=== PATIENT | female | born 1970 | race Caucasian/White ===

== ENCOUNTER 2017-01-11 06:41 | Emergency (ER) | payer BC, MEDICAID ==
[2017-01-11 06:50] VITALS: BP 137/115
--- NOTE | 2017-01-11 08:31 | RAD ---
HISTORY: Right shoulder pain COMPARISONS: None VIEWS: 4, Frontal internal rotation, external rotation, and outlet views of the right shoulder FINDINGS: BONE DENSITY: Normal. BONES: There is no displaced fracture. JOINTS: There is mild osteoarthritis of the right AC joint ALIGNMENT: There is no dislocation. SOFT TISSUES: Unremarkable. OTHER FINDINGS: None. IMPRESSION: NO ACUTE OSSEOUS INJURY. IF SYMPTOMS PERSIST, RECOMMEND REPEAT IMAGING.
--- NOTE | 2017-01-11 08:35 | RAD ---
INDICATION: Wrist pain without proceeding injury. COMPARISON: None. TECHNIQUE: AP, lateral, and oblique views RIGHT wrist. REPORT AND IMPRESSION: Minor ulnar plus variance which increases stress on the triangular fibrocartilage. Alignment is otherwise normal. Preserved joint spaces. Healed fracture of the fifth metacarpal noted. No acute fracture or focal osseous lesion. Unremarkable soft tissue contours.
--- NOTE | 2017-01-11 13:59 | ED ---
nini Kaminski Timothy, scribed for Pito Yanez MD on 01/11/17 at 0719 . Upper Extremity Pain - HPI Summary HPI Summary: Prema Zambrano is 46 yo female presenting to [facility] with 6/10 right wrist ache radiating through her arm into her right shoulder since 0000 01/10/17, increasing throughout yesterday. She states the pain is worse at night. Her pain increases with movement of her right hand and arm. She states she was Dx with carpal tunnel a few years ago, but it resolved spontaneously. She states she has been writing and crocheting a lot recently, but denies any trauma. She denies any neck pain, but claims swelling and tenderness throughout her right arm and shoulder. She states she was on prednisone for hives. She self- medicated with tylenol, last at 0520 with 650 mg. Her opiate Hx is with oxycodone (9 year history). Her MHx includes opiate abuse (recovering), rheumatoid arthritis, COPD, asthma, cholecystectomy, sepsis, hysterectomy, former tobacco smoker. - History of Current Complaint Chief Complaint: EDExtremityUpper Stated Complaint: WRIST PAIN Time Seen by Provider: 01/11/17 07:18 Hx Obtained From: Patient Mechanism Of Injury: Unknown Onset/Duration: Started Hours Ago, Still Present Severity Initially: Moderate Severity Currently: Moderate Pain Location: Wrist Character: Aching Aggravating Factor(s): Movement, Lifting, Flexion, Extension - Allergies/Home Medications Allergies/Adverse Reactions: Allergies Allergy/AdvReac Type Severity Reaction Status Date / Time NSAIDs Allergy Swelling Verified 01/11/17 06:45 Of Face,Lips,& Throat Penicillins Allergy Anaphylatic Verified 01/11/17 06:45 Shock Sulfa Antibiotics Allergy Unknown Verified 01/11/17 06:45 Reaction Details Home Medications: Home Medications Buprenorphine HCl-Naloxone HCl [Suboxone] 2 ea SL DAILY 01/11/17 [History Confirmed 01/11/17] Multiple Vitamins W/ Minerals [Multivitamin Adults] 1 tab PO DAILY 01/11/17 [ History Confirmed 01/11/17] traZODone TAB* [Desyrel TAB*] 100 mg PO BEDTIME 01/11/17 [History Confirmed ] PMH/Surg Hx/FS Hx/Imm Hx Respiratory History: Reports: Hx Asthma, Hx Chronic Obstructive Pulmonary Disease (COPD) Musculoskeletal History: Reports: Hx Arthritis Psychiatric History: Reports: Hx Substance Abuse - opiate - Surgical History Surgery Procedure, Year, and Place: cholecystectomy, hysterectomy Infectious Disease History: Yes Infectious Disease History: Denies: Traveled Outside the [place] in Last 30 Days - Family History Known Family History: Positive: Cardiac Disease, Hypertension, Diabetes - Social History 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, 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 Alcohol Use: None Hx Substance Use: Yes Substance Use Type: Reports: Other - opiate Hx Tobacco Use: Yes Smoking Status (MU): Former Smoker Review of Systems Constitutional: Negative Eyes: Negative ENT: Negative Cardiovascular: Negative Respiratory: Negative Gastrointestinal: Negative Genitourinary: Negative Musculoskeletal: Other - right wrist pain radiating to right shoulder Positive: Other - tennderness and edema throughout right arm Skin: Negative Neurological: Negative Psychological: Normal All Other Systems Reviewed And Are Negative: Yes Physical Exam - Summary Physical Exam Summary: The patient is well-nourished in no acute distress and in no acute pain. The skin is warm and dry and skin color reflects adequate perfusion. HEENT: The head is normocephalic and atraumatic. The pupils are equal and reactive. The conjunctivae are clear and without drainage. Nares are patent and without drainage. Mouth reveals moist mucous membranes and the throat is without erythema and exudate. The external ears are intact. The ear canals are patent and without drainage. The tympanic membranes are intact. Neck is supple with full range of motion and non-tender. There are no carotid bruits. There is no neck vein distension. Respiratory: Chest is non-tender. Lungs are clear to auscultation and breath sounds are symmetrical and equal. Cardiovascular: Heart is regular rate and rhythm. There is no murmur or rub auscultated. There is no peripheral edema and pulses are symmetrical and equal. Musculoskeletal: Exam limited to RUE. There is marked tenderness on the proximal aspect of the humerus and rotator cuff. Erythema is noted over the humerus. There are diffuse hives. There is good brachial pulse, good ulnar and radial pulse, as well as capillary refill. There is no swelling of the wrist. The elbow is intact with full ROM. The right wrist has full ROM through flexion and extension. Note some atrophy in the interosseus digits of the right hand. There is decreased motor strength in the right hand compared to the left. Positive tinel's and phalan's sign in the RUE. Decreased sensation over the median nerve of the RUE. Ulnar and radial nerves intact. Neurological: Patient is alert and oriented to person, place and time. The patient has symmetrical motor strength in all four extremities. Cranial nerves are grossly intact. Deep tendon reflexes are symmetrical and equal in all four extremities. Psychiatric: The patient has an appropriate affect and does not exhibit any anxiety or depression. Triage Information Reviewed: Yes Vital Signs On Initial Exam: Initial Vitals Temp Pulse Resp BP Pulse Ox 98.0 F 71 16 137/115 93 01/11/17 06:42 01/11/17 06:42 01/11/17 06:42 01/11/17 06:42 01/11/17 06:42 Vital Signs Reviewed: Yes - [place] Coma Scale Coma Scale Total: 15 Procedures - Splinting Location: right wrist Pre-Made Type: velcro Splint: wrist - cockup Pre-Proc Neuro Vasc Exam: normal Post-Proc Neuro Vasc Exam: normal, unchanged from pre-exam Diagnostics - Vital Signs Vital Signs Temp Pulse Resp BP Pulse Ox 01/11/17 06:42 98.0 F 71 16 137/115 93 - Laboratory Lab Statement: Any lab studies that have been ordered have been reviewed, and results considered in the medical decision making process. - Radiology R wrist XR Xray Interpretation: No Acute Changes - REPORT AND IMPRESSION: Minor ulnar plus variance which increases stress on the triangular fibrocartilage. Alignment is otherwise normal. Preserved joint spaces. Healed fracture of the fifth metacarpal noted. No acute fracture or focal osseous lesion. Unremarkable soft tissue contours. Radiology Interpretation Completed By: Radiologist R shoulder XR Xray Interpretation: No Acute Changes - IMPRESSION: NO ACUTE OSSEOUS INJURY. IF SYMPTOMS PERSIST, RECOMMEND REPEAT IMAGING. Radiology Interpretation Completed By: Radiologist Re-Evaluation - Re-Evaluation First Eval Re-Evaluation Time: 08:48 Change: Unchanged Comment: Informed Pt of negative results of imaging study. Pt feels better with application of her splint, and does not want pain medication. Course/Dx - Course Assessment/Plan: Prema Zambrano is a 46 yo female with RA and carpal tunnel presenting to [facility] with right upper extremity pain. Pt does not request pain medication. After clinical examination and negative XR's of her right shoulder and wrist, she will be discharged home with right carpal tunnel syndrome, and right medial nerve entrapment. - Diagnoses Differential Diagnosis/HQI/PQRI: Positive: Other - RA, median nerve entrapment, carpal tunnel RUE, right rotator cuff injury Provider Diagnoses: Median nerve entrapment, Right carpal tunnel syndrome, Injury of right rotator cuff Discharge - Discharge Plan Condition: Stable Disposition: HOME Patient Education Materials: Rotator Cuff Injury (ED), Carpal Tunnel Syndrome ( ED), Carpal Tunnel Syndrome Exercises (GEN) Referrals: Frederic Benavides MD [Medical Doctor] - 2 Days Additional Instructions: Please follow up with orthopedics of your choice regarding your visit to the emergency department today. Return to the emergency department with any new or recurring symptoms. The documentation as recorded by the nini dooley Timothy accurately reflects the service I personally performed and the decisions made by , Pito Yanez MD.
== END 2017-01-11 09:03 | disposition home or self-care (01) ==
LOC: ED 06:41
DX: G56.01 Carpal tunnel syndrome, right upper limb (principal); S46.001A Unspecified injury of muscle(s) and tendon(s) of the rotator cuff of right shoulder, initial encounter; X58.XXXA Exposure to other specified factors, initial encounter; Y93.9 Activity, unspecified; Y92.9 Unspecified place or not applicable; Z87.09 Personal history of other diseases of the respiratory system
CPT/HCPCS: 99282

== ENCOUNTER 2017-01-23 15:57 | Emergency (ER) | payer BC ==
[2017-01-23 16:15] VITALS: BP 109/52
[2017-01-23] MEDS ORDERED: NS 0.9% 1000 ML* 1,000 ML IV ONE (16:22)
[2017-01-23 16:50] LABS: Hematocrit 38 % (35-47); Hemoglobin 13.1 g/dl (12.0-16.0); Mean Corpuscular HGB Conc 34 g/dl (31-36); Mean Corpuscular Hemoglobin 32 pg (27-31); Mean Corpuscular Volume 93 fL (80-97); Mean Platelet Volume 9 um3 (7.4-10.4); Red Blood Count 4.12 10^6/ul (4.0-5.4); Red Cell Distribution Width 13 % (10.5-15)
--- NOTE | 2017-01-23 16:54 | RAD ---
INDICATION: Left-sided chest pain. COMPARISON: There are no prior studies available for comparison. TECHNIQUE: Dual-energy PA and lateral views of the chest were obtained. FINDINGS: The heart is within normal limits in size. Mediastinal and hilar contours appear within normal limits. The lungs are underinflated with more focal elevation of the right hemidiaphragm. There is a small right basilar infiltrate suggestive of atelectasis. No pleural effusion is seen. There is flattening of the diaphragms suggestive of chronic obstructive pulmonary disease. IMPRESSION: FINDINGS SUGGESTIVE OF COPD, NO EVIDENCE FOR ACUTE FINDING.
[2017-01-23 17:06] LABS: Albumin 3.9 g/dL (3.2-5.2); BUN/Creatinine Ratio 20.3 (8-20); Calcium 9.4 mg/dL (8.6-10.3); EGFR African American 100.8 (>60); EGFR Non-African American 78.3 (>60); Globulin 2.7 g/dL (2-4); Potassium 3.9 mmol/L (3.5-5.0); Total Bilirubin 0.3 mg/dL (0.2-1.0); Total Protein 6.6 g/dL (6.4-8.9)
[2017-01-23] MEDS ORDERED: Iohexol 350* (CONTRAST) 500 ML MDV IV ONE (17:22)
--- NOTE | 2017-01-23 17:49 | RAD ---
INDICATION: Chest patient with radiation to the back and shortness of breath. COMPARISON: Comparison is made with a prior chest x-ray study obtained earlier today. TECHNIQUE: A CT angiogram of the chest was performed with intravenous following intravenous injection of 77 ml of Omnipaque 350 nonionic contrast. Contiguous axial sections were obtained from the lung apices through the lung bases. Images were reconstructed in the coronal and sagittal planes. FINDINGS: The opacification of the pulmonary arteries is just below the optimal level limiting the study slightly. No intraluminal filling defect or pulmonary embolism is seen. The heart is within normal limits in size. No pericardial effusion is present. The thoracic aorta is normal in caliber and demonstrates homogeneous contrast opacification. There are slightly prominent lymph nodes in the pretracheal and aorticopulmonary window regions of the mediastinum measuring up to 0.9 cm in transverse dimension. No enlarged hilar lymph nodes are seen. There is mild centrilobular emphysematous change. There is a small infiltrate in the right middle lobe suggestive of atelectasis. The lungs are otherwise clear. No pleural effusion is seen. Images of the upper abdomen demonstrate postcholecystectomy changes. No significant focal osseous abnormality is seen. IMPRESSION: 1. SLIGHTLY LIMITED EXAM, NO EVIDENCE FOR PULMONARY EMBOLISM. 2. SMALL RIGHT MIDDLE LOBE INFILTRATE SUGGESTIVE OF ATELECTASIS. 3. MILDLY PROMINENT MEDIASTINAL LYMPH NODES.
--- NOTE | 2017-01-23 18:56 | ED ---
Nayan Kaminski Rebecca, scribed for Pito Yanez MD on 01/23/17 at 1640 . HPI Chest Pain - HPI Summary HPI Summary: Pt is a 46 y/o F who presents to ED c/o CP. Pain began suddenly yesterday at 1400. It was intermittent and has been constant since this morning. Sx aggravated and alleviated by nothing, unchanged by sitting up. Pain is in the L anterior region with radiation to the back and shoulder blade. Characterized as squeezing and currently moderate, ranked 5/10. Additionally c/o bilateral edema , dizziness, N/V (1x yesterday), abd pain and mild SOB. Denies cough. FHx DM, HLD, CAD. Has never had a stress test. Is not on a blood thinner, has been off them for a few years. PSHx cholecystectomy. PMHx PE. Current pain is not similar to presentation with PEs. Pt is a resident at [facility] for opiod abuse. Common bile duct is blocked. Has had CTs with contrast in the past. Can take ASA and Ibuprofen. Confirms she can take NSAIDs as long as they don't mix with codeine. - History of Current Complaint Chief Complaint: EDChestPainROMI Time Seen by Provider: 01/23/17 16:38 Hx Obtained From: Patient Onset/Duration: Started Days Ago - 1 day ago, Still Present Time of Onset: 14:00 Timing: Constant Initial Severity: Moderate Current Severity: Moderate Pain Intensity: 5 Pain Scale Used: 0-10 Numeric Chest Pain Location: Left Anterior Chest Pain Radiates: Yes Chest Pain Radiates To:: Back, Shoulder - L shoulder blade Character: Pressure/Squeezing Aggravating Factor(s): Nothing Alleviating Factor(s): Nothing Associated Signs and Symptoms: Positive: Chest Pain, Shortness of Breath - mild , Nausea, Abdominal Pain, Calf Pain/Swelling - bilateral swelling, Vomiting - 1x yesterday, Other: - Dizziness. Negative: Cough - Allergy/Home Medications Allergies/Adverse Reactions: Allergies Allergy/AdvReac Type Severity Reaction Status Date / Time NSAIDs Allergy Swelling Verified 01/11/17 06:45 Of Face,Lips,& Throat Penicillins Allergy Anaphylatic Verified 01/11/17 06:45 Shock Sulfa Antibiotics Allergy Unknown Verified 01/11/17 06:45 Reaction Details PMH/Surg Hx/FS Hx/Imm Hx Respiratory History: Reports: Hx Asthma, Hx Chronic Obstructive Pulmonary Disease (COPD) Musculoskeletal History: Reports: Hx Arthritis Psychiatric History: Reports: Hx Substance Abuse - opiate - Surgical History Surgery Procedure, Year, and Place: cholecystectomy, hysterectomy Infectious Disease History: Yes Infectious Disease History: Denies: Traveled Outside the [place] in Last 30 Days - Family History Known Family History: Positive: Cardiac Disease, Hypertension, Diabetes - Social History Alcohol Use: None Hx Substance Use: Yes Substance Use Type: Reports: Other Substance Use Comment - Amount & Last Used: suboxone Hx Tobacco Use: Yes Smoking Status (MU): Former Smoker Review of Systems Positive: Chest Pain - L anterior Positive: Shortness Of Breath - mild. Negative: Cough Positive: Abdominal Pain, Vomiting - 1x yesterday, Nausea Positive: Edema - bilateral Neurological: Other - Dizziness All Other Systems Reviewed And Are Negative: Yes Physical Exam - Summary Physical Exam Summary: The patient is well-nourished in no acute distress and in no acute pain. The skin is warm and dry and skin color reflects adequate perfusion. Good skin turgor. HEENT: The head is normocephalic and atraumatic. The pupils are equal and reactive. The conjunctivae are clear and without drainage. Nares are patent and without drainage. Mouth reveals moist mucous membranes and the throat is without erythema and exudate. The external ears are intact. The ear canals are patent and without drainage. The tympanic membranes are intact. Neck is supple with full range of motion and non-tender. There are no carotid bruits. There is no neck vein distension. Respiratory: Chest is non-tender. Lungs are clear to auscultation and breath sounds are symmetrical and equal. Cardiovascular: Hear is regular rate and rhythm. There is no murmur, rales, ronchi, crackles or rub auscultated. There is no peripheral edema and pulses are symmetrical and equal. Reproducible left anterior chest wall pain. Abdomen: The abdomen is obese, soft and non-tender. There are normal bowel sounds heard in all four quadrants and there is no organomegaly palpated. No CVA tenderness. Musculoskeletal: There is no back pain noted. Extremities are non-tender with full range of motion. There is good capillary refill. There is no peripheral edema or calf tenderness elicited. Neurological: Patient is alert and oriented to person, place and time. The patient has symmetrical motor strength in all four extremities. Cranial nerves are grossly intact. Deep tendon reflexes are symmetrical and equal in all four extremities. Psychiatric: The patient has an appropriate affect and does not exhibit any anxiety or depression. Triage Information Reviewed: Yes Vital Signs On Initial Exam: Initial Vitals Temp Pulse Resp BP Pulse Ox 97.7 F 73 18 109/52 93 01/23/17 16:06 01/23/17 16:06 01/23/17 16:06 01/23/17 16:06 01/23/17 16:06 Vital Signs Reviewed: Yes - Jakub Coma Scale Coma Scale Total: 15 Diagnostics - Vital Signs Vital Signs Temp Pulse Resp BP Pulse Ox 01/23/17 16:06 97.7 F 73 18 109/52 93 - Laboratory Lab Results: Lab Results 01/23/17 01/23/17 01/23/17 Range/Units 16:35 16:35 16:35 WBC 7.0 (3.5-10.8) 10^3/ul RBC 4.12 (4.0-5.4) 10^6/ul Hgb 13.1 (12.0-16.0) g/dl Hct 38 (35-47) % MCV 93 (80-97) fL MCH 32 H (27-31) pg MCHC 34 (31-36) g/dl RDW 13 (10.5-15) % Plt Count 183 (150-450) 10^3/ul MPV 9 (7.4-10.4) um3 Neut % (Auto) 48.8 (38-83) % Lymph % (Auto) 36.4 (25-47) % [place] % (Auto) 11.2 H (1-9) % Eos % (Auto) 3.2 (0-6) % Baso % (Auto) 0.4 (0-2) % Absolute Neuts (auto) 3.4 (1.5-7.7) 10^3/ul Absolute Lymphs (auto) 2.5 (1.0-4.8) 10^3/ul Absolute Monos (auto) 0.8 (0-0.8) 10^3/ul Absolute Eos (auto) 0.2 (0-0.6) 10^3/ul Absolute Basos (auto) 0 (0-0.2) 10^3/ul Absolute Nucleated RBC 0.01 10^3/ul Nucleated RBC % 0.1 D-Dimer, Quantitative (Less Than 230) ng/mL Sodium 140 (133-145) mmol/L Potassium 3.9 (3.5-5.0) mmol/L Chloride 104 (101-111) mmol/L Carbon Dioxide 30 (22-32) mmol/L Anion Gap 6 (2-11) mmol/L BUN 16 (6-24) mg/dL Creatinine 0.79 (0.51-0.95) mg/dL Est GFR ( Amer) 100.8 (>60) Est GFR (Non-Af Amer) 78.3 (>60) BUN/Creatinine Ratio 20.3 H (8-20) Glucose 108 H (70-100) mg/dL Lactic Acid 0.9 (0.5-2.0) mmol/L Calcium 9.4 (8.6-10.3) mg/dL Total Bilirubin 0.30 (0.2-1.0) mg/dL AST 22 (13-39) U/L ALT 16 (7-52) U/L Alkaline Phosphatase 87 (34-104) U/L Troponin I 0.00 (<0.04) ng/mL B-Natriuretic Peptide ( - 100) pg/mL Total Protein 6.6 (6.4-8.9) g/dL Albumin 3.9 (3.2-5.2) g/dL Globulin 2.7 (2-4) g/dL Albumin/Globulin Ratio 1.4 (1-3) 01/23/17 01/23/17 Range/Units 16:35 17:37 WBC (3.5-10.8) 10^3/ul RBC (4.0-5.4) 10^6/ul Hgb (12.0-16.0) g/dl Hct (35-47) % MCV (80-97) fL MCH (27-31) pg MCHC (31-36) g/dl RDW (10.5-15) % Plt Count (150-450) 10^3/ul MPV (7.4-10.4) um3 Neut % (Auto) (38-83) % Lymph % (Auto) (25-47) % [place] % (Auto) (1-9) % Eos % (Auto) (0-6) % Baso % (Auto) (0-2) % Absolute Neuts (auto) (1.5-7.7) 10^3/ul Absolute Lymphs (auto) (1.0-4.8) 10^3/ul Absolute Monos (auto) (0-0.8) 10^3/ul Absolute Eos (auto) (0-0.6) 10^3/ul Absolute Basos (auto) (0-0.2) 10^3/ul Absolute Nucleated RBC 10^3/ul Nucleated RBC % D-Dimer, Quantitative < 200 (Less Than 230) ng/mL Sodium (133-145) mmol/L Potassium (3.5-5.0) mmol/L Chloride (101-111) mmol/L Carbon Dioxide (22-32) mmol/L Anion Gap (2-11) mmol/L BUN (6-24) mg/dL Creatinine (0.51-0.95) mg/dL Est GFR ( Amer) (>60) Est GFR (Non-Af Amer) (>60) BUN/Creatinine Ratio (8-20) Glucose (70-100) mg/dL Lactic Acid (0.5-2.0) mmol/L Calcium (8.6-10.3) mg/dL Total Bilirubin (0.2-1.0) mg/dL AST (13-39) U/L ALT (7-52) U/L Alkaline Phosphatase (34-104) U/L Troponin I (<0.04) ng/mL B-Natriuretic Peptide 43 ( - 100) pg/mL Total Protein (6.4-8.9) g/dL Albumin (3.2-5.2) g/dL Globulin (2-4) g/dL Albumin/Globulin Ratio (1-3) Result Diagrams: 01/23/17 16:35 01/23/17 16:35 Lab Statement: Any lab studies that have been ordered have been reviewed, and results considered in the medical decision making process. - Radiology CXR Radiology Interpretation Completed By: Radiologist - FINDINGS SUGGESTIVE OF COPD , NO EVIDENCE FOR ACUTE FINDING. - CT Chest/Thorax CTA CT Interpretation Completed By: Radiologist - 1. SLIGHTLY LIMITED EXAM, NO EVIDENCE FOR PULMONARY EMBOLISM. 2. SMALL RIGHT MIDDLE LOBE INFILTRATE SUGGESTIVE OF ATELECTASIS. 3. MILDLY PROMINENT MEDIASTINAL LYMPH NODES. - EKG 1614 Cardiac Rate: NL - 76 bpm EKG Rhythm: Sinus Rhythm ST Segment: Normal EKG Interpretation: Poor R wave progression, no STEMI Chest Pain Course/Dx - Course Assessment/Plan: Pt is a 46 y/o F who presents to the ED c/o L anterior chest pain with radiation to the back and L shoulder blade since yesterday. Additionally c/o bilateral edema, dizziness, N/V (1x yesterday), abd pain and mild SOB. Denies cough. CXR reveals no acute findings. Chest/thorax CTA reveals no evidence for PE. D-dimer<200. EKG reveals no acute findings. Pt will be D/C to home with dx of chest pain and pleurisy with a followup with her PCP and instrucitons to take 81 mg ASA every day. - Chest Pain Differential Diagnosis/HQI/PQRI: Acute SD, ACS, Chest Wall, GI Disease, Pulmonary Embolism, Other: - anxiety, pleurisy - Diagnoses Provider Diagnoses: Chest pain, Pleurisy Discharge - Discharge Plan Condition: Stable Disposition: HOME Patient Education Materials: Chest Pain (ED), Pleurisy (ED) Referrals: Alberto Addiction, [Primary Care Provider] - (Follow up with your primary care physician upon discharge from [facility]. ) Additional Instructions: Take 1 baby aspirin (81 mg) every day. Follow up with your primary care physician when you are discharged from [facility] and consider an outpatient stress test. The documentation as recorded by the Nayan dooley Rebecca accurately reflects the service I personally performed and the decisions made by me, Pito Yanez MD.
== END 2017-01-23 19:08 | disposition home or self-care (01) ==
LOC: ED 15:57
DX: R07.9 Chest pain, unspecified (principal); R09.1 Pleurisy; R06.02 Shortness of breath; R11.2 Nausea with vomiting, unspecified; R60.9 Edema, unspecified; Z87.891 Personal history of nicotine dependence; R42 Dizziness and giddiness
CPT/HCPCS: 36415; 71020; 71275; 80053; 83605; 83880; 84484; 85025; 85379; 93005; 99282; Q9967